=== PATIENT | male | born 1980 | race Caucasian/White ===

== ENCOUNTER → 2017-07-29 15:24 | Outpatient (CLI) | payer OTHER, SELFPAY ==
[2017-07-29 17:51] LABS: Absolute Lymphocyte Count 1.96 X10^3/ul (0.83-4.51); Absolute Neutrophil Count 3.5 X10^3/uL (2.0-7.7); Basophil# 0.09 X10^3/uL; Basophil% 1.1 % (0-1); Eosinophil# 1.36 X10^3/uL; Eosinophils% 17.4 % (0-5); Hematocrit 45.8 % (40-54); Hemoglobin 15.4 g/dl (13.0-16.5); Lymphocyte # 1.96 X10^3/ul (4.0); Mean Corp Hgb Conc 33.6 g/gl (32-36); Mean Corpuscular Hgb 29.7 pg (27.0-32.0); Mean Corpuscular Volume 88.2 fL (80-94); Mean Platelet Vol. 12.8 fl (6.2-12.0); Monocyte# 0.86 X10^3/uL; Neutrophil # 3.54 X10^3/uL (2.7-7.7); Neutrophil % 45.2 % (47-70); POSITIVE COUNT NO; POSITIVE DIFFERENTIAL NO; POSITIVE MORPHOLOGY NO; Platelet Count 252 K/mm3 (150-450); RBC Distribution Width CV 13.3 % (11.6-14.6); RBC Distribution Width SD 42.9 fl (35.1-43.9); Red Blood Count 5.19 M/mm3 (4.6-6.2); White Blood Count 7.8 K/mm3 (4.4-11.0)
[2017-07-29 18:18] LABS: ALB/GLOB Ratio 1.1 RATIO (0.9-2.4); AST(SGOT) 30 U/L (15-37); Alanine Aminotransfer ALT/SGPT 47 U/L (16-61); Albumin, Serum 4.2 g/dL (3.2-5.0); Alkaline Phosphatase 100 U/L (45-117); Anion Gap 7 (5-15); BUN 15 mg/dL (7-18); BUN/Creat Ratio 16.8 RATIO (10-20); Calcium,Total 9.8 mg/dL (8.5-10.1); Chloride 104 mmol/L (98-107); Creatinine, Serum 0.89 mg/dL (0.70-1.30); EST Glomerular Filtration Rate 101 mL/min (>60); Est Glom Filt Rate - Afr Amer 122 mL/min (>60); Globulin 3.7 g/dL (2.2-4.2); Glucose 76 mg/dL (74-106); Potassium 3.8 mmol/L (3.5-5.1); Protein, Total 7.9 g/dL (6.4-8.2); Sodium Level 140 mmol/L (136-145); T4 Free Direct 1.21 ng/dL (0.76-1.46); Thyroid Stim Hormone (TSH) 0.13 uIU/mL (0.358-3.74)
== END ==
PROVIDERS: Family Provider Family Medicine; PCP Family Medicine; Visit Provider Family Medicine
DX: R63.4 Abnormal weight loss (principal)
CPT/HCPCS: 36415; 80053; 84439; 84443; 85025

== ENCOUNTER → 2017-08-10 12:57 | Outpatient (CLI) | payer OTHER, SELFPAY ==
[2017-08-10 14:59] LABS: Absolute Lymphocyte Count 1.16 X10^3/ul (0.83-4.51); Absolute Neutrophil Count 6.7 X10^3/uL (2.0-7.7); Basophil# 0.03 X10^3/uL; Basophil% 0.4 % (0-1); Eosinophil# 0.07 X10^3/uL; Eosinophils% 0.8 % (0-5); Hematocrit 42.7 % (40-54); Hemoglobin 14.2 g/dl (13.0-16.5); Lymphocyte # 1.16 X10^3/ul (4.0); Lymphocyte % 13.9 % (19-41); Mean Corp Hgb Conc 33.3 g/gl (32-36); Mean Corpuscular Hgb 29.8 pg (27.0-32.0); Mean Corpuscular Volume 89.7 fL (80-94); Monocyte# 0.38 X10^3/uL; Monocyte% 4.6 % (0-10); Neutrophil # 6.69 X10^3/uL (2.7-7.7); Neutrophil % 80.1 % (47-70); Platelet Count 196 K/mm3 (150-450); RBC Distribution Width CV 13.6 % (11.6-14.6); RBC Distribution Width SD 44.8 fl (35.1-43.9); Red Blood Count 4.76 M/mm3 (4.6-6.2); White Blood Count 8.4 K/mm3 (4.4-11.0)
[2017-08-10 15:00] LABS: POSITIVE COUNT NO; POSITIVE DIFFERENTIAL NO; POSITIVE MORPHOLOGY NO
[2017-08-10 15:15] LABS: T3 Total - Triiodothyronine 1.12 ng/mL (0.6-1.81)
[2017-08-10 15:17] LABS: T4 Free Direct 1.09 ng/dL (0.76-1.46); Thyroid Stim Hormone (TSH) 0.06 uIU/mL (0.358-3.74)
[2017-08-12 16:09] LABS: Thyroid Peroxidase AB 10 IU/mL (0-34)
[2017-08-13 11:10] LABS: Thyroglobulin Antibody < 1.0 IU/mL (0.0-0.9)
== END ==
PROVIDERS: Family Provider Family Medicine; PCP Family Medicine; Visit Provider Family Medicine
DX: E05.90 Thyrotoxicosis, unspecified without thyrotoxic crisis or storm (principal); D72.1 Eosinophilia
CPT/HCPCS: 36415; 84439; 84443; 84480; 85025; 86376; 86800

== ENCOUNTER 2017-08-18 07:15 | Day surgery (SDC) | payer OTHER, SELFPAY ==
[2017-08-18 07:39] VITALS: BP 115/68; PULSE 67; RESP 16; TEMP 36.5; O2SAT 100; BMI 20.3
--- NOTE | 2017-08-18 08:45 | PCM.DC ---
You will use the following diet at home:: No restrictions Discharge Activity: Return to Normal Activity Call your doctor if your incision/area has: Increased Pain/ Swelling Additional Dressing/Incision Instructions:: irrigate with saline 5-6 times per day Allergies/Adverse Reactions: Allergies No Known Allergies Allergy (Verified 08/11/17 12:55) Medications to take at Discharge Albuterol IH (ProAir) [Proair Hfa] 1 puff IN PRN PRN 08/11/17 Hydrocodone/Acetaminophen [[place] 5-325 Tablet] 1 ea PO Q6H PRN 3 Days #10 tab 08/18/17 Levofloxacin [Levaquin] 500 mg PO BID #10 tab 08/18/17 MethylPREDNISolone DosePak [Medrol DosePak] 4 mg PO DAILY #1 pack 08/18/17 The following prescriptions were given: MethylPREDNISolone DosePak [Medrol DosePak] 4 mg PO DAILY #1 pack Levofloxacin [Levaquin] 500 mg PO BID #10 tab Hydrocodone/Acetaminophen [[place] 5-325 Tablet] 1 ea PO Q6H PRN 3 Days #10 tab PRN Reason: Pain Primary Care Physician: Gage Gomez DO [Primary Care Provider] - Please Follow Up With: Gilson Aguirre MD When: 1 week
[2017-08-18] MEDS: Clindamycin 900 MG/50 ML BAG 75 MG IV (08:49)
[2017-08-18] MEDS: Oxymetazoline 0.05% 1 SPRAY SPRAY.BTL 15 SPRAY (09:00)
--- NOTE | 2017-08-18 09:00 | ETH_PTH ---
PATIENT: NEIL MISTRY [place] [facility] [place][id number] AGE/SX: 36/M ROOM: RE08/18/[address]: Dr. Ilia Aguirre MD : 1980 BED: DIS: 08/18/2017 SPEC #: [id number] RECD: 08/18/17 10:27 STATUS: ANJU BAUDILIO #: [id number] YOSHI: 08/18/17 09:[address]: Ilia Aguirre DEPT: SURGICAL PATHOLOGY RECD BY: Obey Zavala ENTERED: 08/18/17 12:55 SP TYPE: ETH TISS OTHR DR: Dr. Gage Gomez DO Tissues: A - Ethmoid sinus, NOS B - Ethmoid sinus, NOS Procedures: Decalcification bone/plaque Special Stain Group I Surgery Specimen Level IV GMS Stain (control) HEADER OPERATION: Functional endoscopic sinus surgery PRE-OP DIAGNOSIS: Allergic rhinitis, chronic pansinusitis, polyp of nasal cavity TISSUE SUBMITTED: A ? Left maxillary/ethmoid sinus contents, B ? Right maxillary/ethmoid sinus contents MICROSCOPIC DIAGNOSIS A. Left maxillary/ethmoid sinus contents: Fragments of respiratory mucosa including turbinates with chronic inflammation and bone. A few organisms consistent with bacteria (actinomyces). Special stain for fungi is negative for organisms; matched control is appropriate. B. Right maxillary/ethmoid sinus contents: Fragments of respiratory mucosa including turbinates with chronic inflammation and bone. SJ:angie 08/21/17 COMMENT Case has been reviewed in consultation with Dr. Jones who concurs with the above diagnosis. IDC:AM MICROSCOPIC DESCRIPTION Slides are reviewed. GROSS DESCRIPTION A - Received in fixative is one container labeled with the patient's name and designated left maxillary/ ethmoid sinus contents. The specimen consists of multiple fragments of hemorrhagic mucoid, frothy soft tissue that in aggregate measure 5 x 5 x 1.5 cm. A small piece of mucosal tissue consistent with turbinate is also noted. [employer] tissue is submitted in four cassettes after decalcification. B - Received in fixative is one container labeled with the patient's name and designated right maxillary/ ethmoid sinus contents. The specimen consists of multiple fragments of forman-pink soft tissue mixed with fragments of bone including turbinates that in aggregate measure 4 x 3 x 0.3 cm. The entire specimen is submitted in two cassettes after decalcification. / JULIANA:angie 08/18/17 TC:3 CPT: 35374 x2, 60760 x2, 38557
--- NOTE | 2017-08-18 09:01 | OP.PCM_ITS ---
Problem List (1) Chronic pansinusitis Status: Chronic Report of Operation Date of Procedure: 08/18/17 Pre-Operative Diagnosis: 1. chronic pansinusitis. 2. sinonasal polyposis Post-Operative Diagnosis: 1. chronic pansinusitis. 2. sinonasal polyposis Surgery/Procedure Performed:: 1. endoscopic maxillary antrostomy with tissue removal, right and left. 2. endoscopic frontal sinus exploration with tissue removal, right and left. 3. total endoscopic ethmoidectomy with sphenoidotomy, right and left. 4. extensive excision nasal polyps. 5. stereotactic computer assisted navigation Type of Anesthesia:: General Specimen's removed: right and left sinus contents Drains: none Estimated Blood Loss (mL): 5cc Description of Procedure: on the day of the procedure, after appropriate informed consent was obtained, the patient was brought to the operating room and placed in supine position on the operating table. he was placed under general endotracheal anesthesia by the anesthesiologist. the endotracheal tube was secured, the eyes were lubricated. the image-guidance facial pads were placed. the bilateral nasal cavities were decongested with oxymetazoline-soaked pledgets. the zero degree endoscope was used to evaluate the nose. the right and left superior attachment of the middle turbinate and polyps were injected with lidocaine/epinephrine. the left nose was visualized with the endoscope. polyps were removed from the middle meatus using the microdebrider. the acclarent balloon sinuplasty kit was used to probe the frontal sinus lateral to the superior attachment of the middle turbinate. the balloon was advanced after transillumination was seen in the frontal area and inflated to 12atm and removed. contents were evacuated. an antrostomy and uncinectomy was performed with a combination of a raciel elevator and a blakesley. a back biter was used to widen the antrostomy and contents were removed. the ethmoid bulla was entered bluntly with a suction. further polyps were removed from the sphenoethmoidal recess with the microdebrider. a total ethmoidectomy was performed with a curette and an upgoing blakesley. this was taken superiorly to the skull base and laterally to the lamina. a stankewicz maneuver was performed and no laminar defect was seen. a mushroom punch was used to widen the natural sphenoid os and sphenoid contents were removed. endoscopic scizzors were used to remove the anterior/ inferior portion of the middle turbinate. pledgets were placed and hemostasis was achieved. a propel stent was placed in the prior meatus/ethmoid cavity. the right nose was visualized with the endoscope. polyps were removed from the middle meatus using the microdebrider. the acclarent balloon sinuplasty kit was used to probe the frontal sinus lateral to the superior attachment of the middle turbinate. the balloon was advanced after transillumination was seen in the frontal area and inflated to 12atm and removed. contents were evacuated. an antrostomy and uncinectomy was performed with a combination of a raciel elevator and a blakesley. a back biter was used to widen the antrostomy and contents were removed. the ethmoid bulla was entered bluntly with a suction. further polyps were removed from the sphenoethmoidal recess with the microdebrider. a total ethmoidectomy was performed with a curette and an upgoing blakesley. this was taken superiorly to the skull base and laterally to the lamina. a stankewicz maneuver was performed and no laminar defect was seen. a mushroom punch was used to widen the natural sphenoid os and sphenoid contents were removed. endoscopic scizzors were used to remove the anterior/ inferior portion of the middle turbinate. pledgets were placed and hemostasis was achieved. a propel stent was placed in the prior meatus/ethmoid cavity. the patient was awoken from anesthesia and transferred to the PACU in stable condition. Grafts/Implants Used: propel stents - Admit VTE Documentation VTE Present on Admission: No VTE Mechan Device Prophylaxis: SCD's VTE Pharm Prophylaxis ordered?: No Reason prophylaxis not ordered:: Treatment Not Indicated
[2017-08-18 10:34] VITALS: BP 115/68; BP 150/93; PULSE 75; RESP 18; TEMP 36.5; O2SAT 99
[2017-08-18 10:45] VITALS: BP 115/68; BP 148/98; PULSE 65; RESP 18; O2SAT 100
[2017-08-18 11:00] VITALS: BP 115/68; BP 141/95; PULSE 60; RESP 18; TEMP 36.8; O2SAT 99
[2017-08-18 11:39] VITALS: BP 115/68
== END 2017-08-18 12:45 | disposition home or self-care (01) ==
LOC: SDC 07:16 → AC 07:18
PROVIDERS: Family Provider Family Medicine; PCP Family Medicine; Visit Provider Otolaryngology
PROC: (CPT 31237; principal; 2017-08-18 08:30)
DX: J32.4 Chronic pansinusitis (principal); J33.0 Polyp of nasal cavity; J30.1 Allergic rhinitis due to pollen; J30.81 Allergic rhinitis due to animal (cat) (dog) hair and dander; Z79.51 Long term (current) use of inhaled steroids; Z79.52 Long term (current) use of systemic steroids; Z79.899 Other long term (current) drug therapy
CPT/HCPCS: 00160; 31237; 31257; 31267; 31276; 88305; 88311; 88312; J7120; J2405